=== PATIENT | female | born 1985 ===

== ENCOUNTER → 2023-03-23 | Outpatient (REF) | payer OTHER ==
[2023-03-23 14:32] LABS: CHLAMYDIA DNA AMPLIFICATION POSITIVE (NEGATIVE); GC DNA AMPLIFICATION NEGATIVE (NEGATIVE)
== END ==
LOC: M LAB REF 12:15
PROVIDERS: ATTEND Physician Assistant
DX: Z20.2 Contact with and (suspected) exposure to infections with a predominantly sexual mode of transmission (principal)

== ENCOUNTER → 2023-05-01 | Outpatient (REF) | payer OTHER | LOC: M LAB REF 20:11 | PROVIDERS: ATTEND Student in an Organized Health Care Education/Training Program | DX: R30.0 Dysuria (principal) ==